=== PATIENT | male | born 1950 | race Caucasian/White ===

== ENCOUNTER → 2016-05-14 | Outpatient (CLI) | payer OTHER ==
--- NOTE | 2016-05-14 14:58 | NM ---
Nuclear Medicine Whole Body Bone Scan 1222 hours Clinical Indications: Prostate cancer with elevated PSA of 119. Comparison: There are no pertinent images for comparison. Technique: 20.0 mCi of technetium 99m MDP were injected intravenously. Delayed images of the skeleto n were obtained in anterior and posterior projections. Findings: There is normal uptake seen associated with the skeleton. There is normal uptake of tracer by the kidneys and excretion into the bladder. There is a focus of increased uptake in the anterior p rojection corresponding to the region of costochondral cartilage on the right associated with the six th or seventh rib. Soft tissue uptake is normal. Impression: 1. Incidental increased uptake in the region of the costochondral cartilage right sixth or seventh ri b. This is nonspecific but could be related to prior trauma. Otherwise, normal nuclear medicine Bone scan.
== END ==
LOC: FIMAGING 10:17
PROVIDERS: ATTEND Specialist
DX: R91.8 Other nonspecific abnormal finding of lung field (principal); R97.20 Elevated prostate specific antigen [PSA]; C61 Malignant neoplasm of prostate
CPT/HCPCS: 78306; A9503

== ENCOUNTER → 2017-08-17 | Outpatient (CLI) | payer OTHER | LOC: FIMAGING 13:45 | PROVIDERS: ATTEND Specialist | DX: R91.8 Other nonspecific abnormal finding of lung field (principal) ==

== ENCOUNTER → 2018-06-30 | Outpatient (CLI) | payer OTHER | LOC: FIMAGING 09:57 | PROVIDERS: ATTEND Specialist | DX: C61 Malignant neoplasm of prostate (principal) | CPT/HCPCS: 78306; A9503 ==